=== PATIENT | male | born 1990 | race Caucasian/White ===

== ENCOUNTER 2018-01-15 22:38 | Emergency (ER) | payer OTHER ==
[~2018-01-15] VITALS: Ht 175.3 cm; Wt 112.1 kg
[2018-01-15 22:57] VITALS: Ht 175.3 cm; Wt 112.1 kg
[2018-01-16 00:17] VITALS: BP 148/96
== END 2018-01-16 00:17 | disposition home or self-care (01) ==
LOC: ED 22:38
DX: J03.90 Acute tonsillitis, unspecified (principal); Z88.2 Allergy status to sulfonamides
CPT/HCPCS: J0561

== ENCOUNTER 2019-08-12 20:27 | Inpatient (IN) | payer OTHER, SELFPAY ==
[~2019-08-12] VITALS: Ht 188 cm; Wt 96.0 kg
[2019-08-12 21:23] LABS: BASOPHIL % 0.4 % (0-2); PLATELET COUNT 219 x10^3mcL (130-400); RED CELL DISTRIBUTION WIDTH 13.9 % (11.5-14.5)
[2019-08-12 21:35] LABS: CALCIUM 8.9 mg/dL (8.5-10.1); CARBON DIOXIDE 24.6 mmol/L (21-32); CHLORIDE SERUM 102 mmol/L (98-107); CREATININE SERUM 1.7 mg/dL (0.7-1.3); GFR1 51 mL/min; GLUCOSE SERUM 169 mg/dL (74-106); POTASSIUM SERUM 3.6 mmol/L (3.5-5.1); SODIUM SERUM 138 mmol/L (136-145)
[2019-08-12 21:39] LABS: ALBUMIN 3.6 g/dL (3.4-5.0); ALKALINE PHOSPHATASE 42 U/L (46-116); ALT/SGPT 46 U/L (16-63); AST/SGOT 64 U/L (15-37); BILIRUBIN TOTAL 0.24 mg/dL (0.20-1.00); TOTAL PROTEIN, SERUM 6.3 g/dL (6.4-8.2)
[2019-08-12 22:28] VITALS: BP 93/41
[2019-08-12 23:47] LABS: CHOLESTEROL/HDL RATIO 3.4
[2019-08-13] VITALS (20 sets, daily range): BP systolic 92–123; BP diastolic 40–80
[2019-08-13 00:50] LABS: UA SPECIFIC GRAVITY >=1.030 (1.005-1.035); microscopic required? YES; urine erythrocyte 3+ (NEGATIVE)
[2019-08-13 00:58] LABS: AMPHETAMINE QUAL UR NONE DETECTED (See below)
[2019-08-13 05:49] LABS: CALCIUM 8.8 mg/dL (8.5-10.1); CREATININE SERUM 1.6 mg/dL (0.7-1.3); PHOSPHOROUS 3.3 mg/dL (2.5-4.9); POTASSIUM SERUM 4.3 mmol/L (3.5-5.1)
[2019-08-13 08:03] LABS: BASOPHIL % 0.4 % (0-2); PLATELET COUNT 174 x10^3mcL (130-400); RED CELL DISTRIBUTION WIDTH 13.9 % (11.5-14.5)
[2019-08-13 10:40] LABS: LACTIC DEHYDROGENASE (LDH) 415 U/L (100-190)
[2019-08-13 13:31] LABS: C REACTIVE PROTEIN < 0.2 mg/dL (<=0.9)
[2019-08-14] VITALS (17 sets, daily range): BP systolic 97–122; BP diastolic 48–68
[2019-08-14 05:31] LABS: CALCIUM 8.7 mg/dL (8.5-10.1); CARBON DIOXIDE 26.1 mmol/L (21-32); CHLORIDE SERUM 104 mmol/L (98-107); CREATININE SERUM 1.4 mg/dL (0.7-1.3); GFR1 > 60 mL/min; GLUCOSE SERUM 86 mg/dL (74-106); MAGNESIUM 1.8 mg/dL (1.8-2.4); PHOSPHOROUS 2.3 mg/dL (2.5-4.9); POTASSIUM SERUM 3.8 mmol/L (3.5-5.1); SODIUM SERUM 137 mmol/L (136-145)
[2019-08-14 05:47] LABS: PLATELET COUNT 131 x10^3mcL (130-400); RED CELL DISTRIBUTION WIDTH 13.8 % (11.5-14.5)
[2019-08-14 06:26] LABS: BAND NEUTROPHIL 34 % (0-10); METAMYELOCTE 2 % (0-2); MONOCYTE 2 % (0-7); SEGMENTED NEUTROPHILS 55 % (37-75)
[2019-08-14 06:27] LABS: PLATELET MORPHOLOGY PLT CLUMPS SEEN; rbc morphology (normal/abnorm) NORMAL (NORMAL)
[2019-08-14 07:46] LABS: ALBUMIN 2.7 g/dL (3.4-5.0); BILIRUBIN DIRECT 0.23 mg/dL (0.0-0.2); BILIRUBIN TOTAL 1.1 mg/dL (0.20-1.00); TOTAL PROTEIN, SERUM 5.7 g/dL (6.4-8.2)
[2019-08-14 09:35] LABS: C REACTIVE PROTEIN 24.2 mg/dL (<=0.9)
[2019-08-15] VITALS (8 sets, daily range): BP systolic 91–116; BP diastolic 54–74
[2019-08-15 05:51] LABS: PLATELET COUNT 147 x10^3mcL (130-400); RED CELL DISTRIBUTION WIDTH 13.8 % (11.5-14.5)
[2019-08-15 05:57] LABS: BASOPHIL % 0 % (0-2)
[2019-08-15 06:01] LABS: CALCIUM 8.9 mg/dL (8.5-10.1); CARBON DIOXIDE 28.6 mmol/L (21-32); CHLORIDE SERUM 102 mmol/L (98-107); CREATININE SERUM 1.1 mg/dL (0.7-1.3); GFR1 > 60 mL/min; GLUCOSE SERUM 88 mg/dL (74-106); POTASSIUM SERUM 3.6 mmol/L (3.5-5.1); SODIUM SERUM 138 mmol/L (136-145)
[2019-08-16 03:32] VITALS: BP 113/64
[2019-08-16 05:10] LABS: CALCIUM 9.2 mg/dL (8.5-10.1); CARBON DIOXIDE 28.7 mmol/L (21-32); CHLORIDE SERUM 103 mmol/L (98-107); CREATININE SERUM 1.2 mg/dL (0.7-1.3); GFR1 > 60 mL/min; GLUCOSE SERUM 106 mg/dL (74-106); MAGNESIUM 1.7 mg/dL (1.8-2.4); PHOSPHOROUS 2.3 mg/dL (2.5-4.9); POTASSIUM SERUM 3.4 mmol/L (3.5-5.1); SODIUM SERUM 140 mmol/L (136-145)
[2019-08-16 05:30] LABS: BASOPHIL % 0 % (0-2); PLATELET COUNT 199 x10^3mcL (130-400); RED CELL DISTRIBUTION WIDTH 13.6 % (11.5-14.5)
[2019-08-16 07:45] VITALS: BP 125/81
[2019-08-16 10:03] VITALS: Ht 188 cm; Wt 96.0 kg
[2019-08-16 11:56] VITALS: BP 113/76
[2019-08-16 16:32] VITALS: BP 119/77; BP 131/62
[2019-08-16] MEDS ORDERED: LEVO-T175 MCG PO (20:00)
[2019-08-16] MEDS ORDERED: ELA50 PO (20:01)
[2019-08-16 20:39] VITALS: BP 125/73
[2019-08-17 05:20] VITALS: BP 125/74
[2019-08-17 07:48] LABS: CALCIUM 9.1 mg/dL (8.5-10.1); CARBON DIOXIDE 26.9 mmol/L (21-32); CHLORIDE SERUM 104 mmol/L (98-107); CREATININE SERUM 1.2 mg/dL (0.7-1.3); GFR1 > 60 mL/min; GLUCOSE SERUM 90 mg/dL (74-106); PHOSPHOROUS 3.3 mg/dL (2.5-4.9); POTASSIUM SERUM 3.5 mmol/L (3.5-5.1); SODIUM SERUM 142 mmol/L (136-145)
[2019-08-17 07:58] LABS: BASOPHIL % 0.4 % (0-2); PLATELET COUNT 222 x10^3mcL (130-400); RED CELL DISTRIBUTION WIDTH 13.7 % (11.5-14.5)
[2019-08-17 08:00] VITALS: BP 104/62
[2019-08-17] MEDS ORDERED: AUGMENTIN 875-1 EACH PO (11:40)
[2019-08-17] MEDS ORDERED: [UNRECOGNIZED DRUG - OTHER] OD (11:40)
[2019-08-17 11:43] VITALS: BP 117/89
[2019-08-17 12:08] VITALS: BP 114/67
== END 2019-08-17 16:14 | disposition home or self-care (01) | DRG 812 ==
LOC: ED 20:27 → IC 22:48 → DU 08-16 11:37
PROVIDERS: Emergency Medicine; Internal Medicine; ADMIT Family Medicine
PROC: 0BH17EZ Insertion of Endotracheal Airway into Trachea, Via Natural or Artificial Opening (ICD-10-PCS; principal; 2019-08-13)
PROC: 5A1945Z Respiratory Ventilation, 24-96 Consecutive Hours (ICD-10-PCS; 2019-08-13)
DX: T40.2X1A Poisoning by other opioids, accidental (unintentional), initial encounter (principal); J96.01 Acute respiratory failure with hypoxia; N17.0 Acute kidney failure with tubular necrosis; G92 Toxic encephalopathy; E44.0 Moderate protein-calorie malnutrition; E83.39 Other disorders of phosphorus metabolism; M62.82 Rhabdomyolysis; E83.42 Hypomagnesemia; E87.6 Hypokalemia; E78.5 Hyperlipidemia, unspecified; Z88.2 Allergy status to sulfonamides; Y92.89 Other specified places as the place of occurrence of the external cause; Z79.899 Other long term (current) drug therapy
CPT/HCPCS: 31500; 36600; 83880; 85378; 87804; 92526-GN; 92610-GN; 94150; A4628; C9113; G0378; G0480; J0295; J0456; J1940; J2185; J2250; J2310; J2543; J2704; J3010; J3370; J3475; J3480; J3490; J7030; J7050; Q0092

== ENCOUNTER 2020-02-03 15:30 | Emergency (ER) | payer OTHER ==
[~2020-02-03] VITALS: Ht 177.8 cm; Wt 95.3 kg
[~2020-02-03 15:30] MED LIST: AUGMENTIN 875-1 EACH PO; ELA50 PO; LEVO-T175 MCG PO; [UNRECOGNIZED DRUG - OTHER] OD
[2020-02-03 15:45] VITALS: Ht 177.8 cm; Wt 95.3 kg
[2020-02-03 17:26] VITALS: BP 121/72
== END 2020-02-03 17:20 | disposition home or self-care (01) ==
LOC: ED 15:30
DX: S92.422A Displaced fracture of distal phalanx of left great toe, initial encounter for closed fracture (principal); S90.212A Contusion of left great toe with damage to nail, initial encounter; R55 Syncope and collapse; Z88.2 Allergy status to sulfonamides; W22.8XXA Striking against or struck by other objects, initial encounter; Y93.89 Activity, other specified; Y92.810 Car as the place of occurrence of the external cause; Y99.8 Other external cause status
CPT/HCPCS: Q0092